=== PATIENT | female | born 1970 | race Caucasian/White ===

== ENCOUNTER 2024-12-19 11:19 | Inpatient (IN) ==
[2024-12-19] MEDS ORDERED: IOPAMIDOL 100 ML BOTTLE IV ONE (11:20)
[2024-12-19] MEDS: ONDANSETRON 4 MG/2 ML VIAL IV ONE (12:04)
[2024-12-19] MEDS: 0.9 % SODIUM CHLORIDE 1,000 ML IV ONE (12:04)
[2024-12-19] MEDS: PANTOPRAZOLE 40 MG VIAL IV ONE ×3 (12:04→19:19)
[2024-12-19] MEDS: KETOROLAC 30 MG/ML VIAL IV ONE (12:04)
[2024-12-19 12:38] LABS: Basophils # (Auto) 0.02 K/mcL (0.00-0.30); Basophils % (Auto) 0.3 % (0.0-2.0); Eosinophils # (Auto) 0 K/mcL (0.00-0.70); Eosinophils % (Auto) 0 % (0.0-7.0); Hematocrit 43.5 % (34.1-44.9); Hemoglobin 14.6 g/dL (11.2-15.7); Lymphocytes # (Auto) 1.48 K/mcL (1.50-4.80); Lymphocytes % (Auto) 19.8 % (15.5-49.0); Mean Corpuscular HGB Conc 33.6 g/dL (31.0-36.0); Monocytes # (Auto) 0.16 K/mcL (0.10-0.90); Monocytes % (Auto) 2.1 % (1.0-12.0); Neutrophils % (Auto) 77.8 % (38.0-78.0); Platelet Count 123 K/mcL (140-440); RBC 4.12 M/mcL (3.59-5.38); WBC 7.5 K/mcL (4.5-11.0)
[2024-12-19 12:39] LABS: ALT/SGPT 57 U/L (<40); AST/SGOT 157 U/L (<32); Albumin 3.7 gm/dL (3.2-5.2); Albumin/Globulin Ratio 1.2 (1.0-2.3); Alkaline Phosphatase 135 U/L (39-117); Anion Gap 16.0 (8.0-16.0); Bilirubin,Total 4.7 mg/dL (0.1-1.0); Blood Urea Nitrogen 13 mg/dL (6-20); Calcium 8.1 mg/dL (8.6-10.4); Carbon Dioxide 21 mmol/L (22-30); Chloride 101 mmol/L (96-108); Globulin 3.1 gm/dL (2.2-3.7); Glucose 153 mg/dL (70-105); Potassium 3.7 mmol/L (3.3-5.1); Sodium 138 mmol/L (133-145)
[2024-12-19 12:39] LABS: Bacteria,Urine Few /hpf (0); Bilirubin,Urine Negative (Negative); Color,Urine DK. ORANGE; Glucose,Urine (UA) 100 mg/dL (Negative); Ketones,Urine 40 mg/dL (Negative); Leukocyte Esterase,Urine NEGATIVE /uL (Negative); Mucus,Urine Many /hpf; PH,Urine 7.0 (5.0-9.0); Protein,Urine 100 mg/dL (Negative); Specific Gravity,Urine 1.025 (1.000-1.035); Urobilinogen,Urine 4.0 mg/dL
[2024-12-19] MEDS: CIPROFLOXACIN 400 MG/200 ML BAG IV ONE (13:20)
[2024-12-19] MEDS: metroNIDAZOLE 500 MG/100 ML BAG IV ONE (13:20)
[2024-12-19] MEDS ORDERED: SUGAMMADEX SODIUM 200 MG/2 ML VIAL IV ONE (13:56)
[2024-12-19] MEDS ORDERED: fentaNYL 100 MCG/2 ML VIAL ONE (13:56)
[2024-12-19] MEDS ORDERED: PROPOFOL 200 MG/20 ML VIAL IV ONE (13:56)
[2024-12-19] MEDS ORDERED: LIDOCAINE 2% PF 5 ML VIAL ONE (13:57)
[2024-12-19] MEDS ORDERED: ROCURONIUM 10 MG/ML ML IV ONE (13:57)
[2024-12-19] MEDS ORDERED: ONDANSETRON 4 MG/2 ML VIAL ONE (13:57)
[2024-12-19] MEDS ORDERED: GLYCOPYRROLATE 0.2 MG/ML VIAL IV ONE ×2 (13:57)
[2024-12-19] MEDS ORDERED: DEXAMETHASONE 10 MG/ML VIAL ONE (13:57)
[2024-12-19] MEDS ORDERED: MIDAZOLAM 2 MG/2 ML VIAL ONE (13:59)
[2024-12-19] MEDS ORDERED: PHENYLEPHRINE 10 MG/ML VIAL ONE (14:04)
[2024-12-19] MEDS ORDERED: ePHEDrine 50 MG/5 ML SYRINGE (ANEST) IV ONE (14:50)
[2024-12-19] MEDS ORDERED: FAMOTIDINE/PF 20 MG/2 ML VIAL IV ONE (15:08)
[2024-12-19] MEDS ORDERED: IPRATROPIUM/ALBUTEROL 3 ML AMPUL.NEB NEB PRN (15:54)
[2024-12-19] MEDS ORDERED: ONDANSETRON 4 MG/2 ML VIAL IV PRN (15:54)
[2024-12-19] MEDS ORDERED: METHOCARBAMOL 1,000 MG/10 ML VIAL IV PRN (15:54)
[2024-12-19] MEDS ORDERED: fentaNYL 100 MCG/2 ML VIAL IV PRN (15:54)
[2024-12-19] MEDS ORDERED: HYDROmorphone 0.5 MG/0.5 ML SYRINGE ONE (16:03)
[2024-12-19] MEDS: BUPIVACAINE W/EPI 0.25% 50 ML VIAL IJ ONE (16:30)
[2024-12-19] MEDS ORDERED: ALBUTEROL SULFATE 2.5 MG/3 ML NEBULIZER NEB PRN (16:44)
[2024-12-19] MEDS: HYDROmorphone 0.5 MG/0.5 ML SYRINGE IV PRN (17:23)
[2024-12-19] MEDS: PANTOPRAZOLE 80 MG in 0.9 % SODIUM CHLORIDE 100 ML IV SCH (18:27)
[2024-12-19] MEDS: 0.9 % SODIUM CHLORIDE 1,000 ML IV SCH (18:36)
[2024-12-19] MEDS: PIPERACILLIN SODIUM/TAZOBACTAM 3.375 GM in DEXTROSE 5% IN WATER 50 ML IV SCH (19:19)
[2024-12-19] MEDS: CIPROFLOXACIN 400 MG/200 ML BAG IV SCH ×2 (19:20→22:24)
[2024-12-19] MEDS: FLUCONAZOLE 400 MG/200 ML BAG IV SCH (20:55)
[2024-12-19] MEDS: DOCUSATE SODIUM 100 MG CAPSULE PO SCH (20:56)
[2024-12-19] MEDS: SENNOSIDES 1 TABLET PO SCH (20:56)
[2024-12-19] MEDS: 0.9 % SODIUM CHLORIDE 10 ML SYRINGE IV SCH (20:57)
[2024-12-19] MEDS: metroNIDAZOLE 500 MG/100 ML BAG IV SCH (22:26)
[2024-12-20] MEDS: PANTOPRAZOLE 40 MG VIAL IV ONE (03:41)
[2024-12-20 05:53] LABS: Hematocrit 33.4 % (34.1-44.9); Hemoglobin 11.2 g/dL (11.2-15.7); Mean Corpuscular HGB Conc 33.5 g/dL (31.0-36.0); Platelet Count 79 K/mcL (140-440); RBC 3.11 M/mcL (3.59-5.38); WBC 12.2 K/mcL (4.5-11.0)
[2024-12-20 06:07] LABS: ALT/SGPT 44 U/L (<40); AST/SGOT 107 U/L (<32); Albumin 3.0 gm/dL (3.2-5.2); Albumin/Globulin Ratio 1.3 (1.0-2.3); Alkaline Phosphatase 78 U/L (39-117); Anion Gap 10.0 (8.0-16.0); Bilirubin,Total 3.4 mg/dL (0.1-1.0); Blood Urea Nitrogen 15 mg/dL (6-20); Calcium 7.1 mg/dL (8.6-10.4); Carbon Dioxide 22 mmol/L (22-30); Chloride 103 mmol/L (96-108); Globulin 2.4 gm/dL (2.2-3.7); Glucose 231 mg/dL (70-105); Potassium 3.8 mmol/L (3.3-5.1); Sodium 135 mmol/L (133-145)
[2024-12-20] MEDS: LACTATED RINGERS 1,000 ML IV SCH (06:23)
[2024-12-20 07:30] LABS: Anisocytosis 1+ (None Seen); Macrocytosis 1+ (None Seen); RBC Morphology ABNORMAL (Normal)
[2024-12-20] MEDS: ENOXAPARIN 40 MG/0.4 ML SYRINGE SQ SCH (08:21)
[2024-12-20] MEDS ORDERED: DIATRIZOATE MEGLU/DIATRIZO SOD 30 ML BOTTLE PO ONE (08:54)
[2024-12-20] MEDS: NICOTINE 14 MG PATCH TOPICAL SCH (09:51)
[2024-12-20] MEDS: ONDANSETRON 4 MG/2 ML VIAL IV PRN (10:03)
[2024-12-20] MEDS: SUCRALFATE 1 GM/10 ML ORAL.SUSP PO SCH (10:59)
[2024-12-20] MEDS: FLUCONAZOLE 400 MG/200 ML BAG IV SCH (10:59)
[2024-12-21] MEDS: hydrALAZINE 20 MG/ML VIAL IV PRN (00:29)
[2024-12-21 04:48] LABS: Basophils # (Auto) 0 K/mcL (0.00-0.30); Basophils % (Auto) 0 % (0.0-2.0); Eosinophils # (Auto) 0 K/mcL (0.00-0.70); Eosinophils % (Auto) 0 % (0.0-7.0); Hematocrit 33.3 % (34.1-44.9); Hemoglobin 10.9 g/dL (11.2-15.7); Lymphocytes # (Auto) 1.11 K/mcL (1.50-4.80); Lymphocytes % (Auto) 8.5 % (15.5-49.0); Mean Corpuscular HGB Conc 32.7 g/dL (31.0-36.0); Monocytes # (Auto) 0.60 K/mcL (0.10-0.90); Monocytes % (Auto) 4.6 % (1.0-12.0); Neutrophils % (Auto) 86.4 % (38.0-78.0); Platelet Count 77 K/mcL (140-440); RBC 3.05 M/mcL (3.59-5.38); WBC 13.1 K/mcL (4.5-11.0)
[2024-12-21 05:01] LABS: ALT/SGPT 39 U/L (<40); AST/SGOT 69 U/L (<32); Albumin 3.1 gm/dL (3.2-5.2); Albumin/Globulin Ratio 1.2 (1.0-2.3); Alkaline Phosphatase 125 U/L (39-117); Anion Gap 10.0 (8.0-16.0); Bilirubin,Total 2.3 mg/dL (0.1-1.0); Blood Urea Nitrogen 10 mg/dL (6-20); Calcium 7.9 mg/dL (8.6-10.4); Carbon Dioxide 23 mmol/L (22-30); Chloride 108 mmol/L (96-108); Globulin 2.6 gm/dL (2.2-3.7); Glucose 156 mg/dL (70-105); Potassium 3.8 mmol/L (3.3-5.1); Sodium 141 mmol/L (133-145)
== END 2024-12-21 08:35 | disposition home or self-care (01) | DRG 326 ==
LOC: ED 11:19 → SUR 14:02 → MEDSUR 17:31
PROVIDERS: ADMIT Surgery; ATTEND Surgery
PROC: DIAGSCO (2024-12-19 14:40)